=== PATIENT | female | born 1940 | race Caucasian/White ===

== ENCOUNTER 2017-12-22 08:09 | Emergency (ER) | payer MEDICARE ==
[~2017-12-22] VITALS: Ht 147.3 cm; Wt 56.2 kg
[~2017-12-22 08:09] MED LIST: ASCO500T11 PO; CEPH750C6 PO; HYDR-2549 PO
[2017-12-22 08:45] VITALS: BP 113/76
[2017-12-22 09:03] LABS: Basophils # (auto) 0 uL; Basophils % (auto) 0.8 % (0.0-2.0); Eosinophils # (auto) 0 uL; Eosinophils % (auto) 0.5 % (0.0-7.0); Hematocrit 44.7 % (36.0-46.0); Hemoglobin 15.6 g/dL (12.2-16.2); Lymphocytes % (auto) 36.6 % (10.0-50.0); Mean Corpuscular Hemoglobin 32.7 pg (28.0-32.0); Mean Corpuscular Hgb Conc. 34.9 g/dL (32.0-36.0); Mean Corpuscular Volume 93.7 fL (80.0-100.0); Monocytes # (auto) 0.4 uL; Monocytes % (auto) 7.7 % (0.0-12.0); Neutrophils % (auto) 54.4 % (37.0-80.0); Nucleated Red Blood Cells % 0.2 %; Platelet Count (auto) 227 10^3/uL (140-450); Red Blood Cells 4.77 10^6/uL (4.0-5.20); Red Cell Distribution Width 13.3 % (11.8-14.3); White Blood Cell 5.5 10^3/uL (4.4-10.8)
[2017-12-22 09:34] LABS: Alanine Aminotransferase 25 U/L (13-56); Albumin 3.5 g/dL (3.4-5.0); Alkaline Phosphatase 63 U/L (45-117); Anion Gap 8 (5-15); Aspartate Aminotransferase 27 U/L (15-37); BUN/Creatinine Ratio 19.4; Bilirubin, Total 0.4 mg/dL (0.2-1.0); Blood Urea Nitrogen 13 mg/dL (7-18); Calcium 7.9 mg/dL (8.5-10.1); Carbon Dioxide 21 mmol/L (21-32); Chloride 114 mmol/L (98-107); GFR African American 109 mL/min; GFR Non-African American 90 mL/min; Glucose 95 mg/dL (74-106); Potassium 3.8 mmol/L (3.5-5.1); Sodium 143 mmol/L (136-145)
[2017-12-22 09:54] LABS: Urine Bacteria FEW /hpf (None Seen); Urine Blood Negative /uL (Negative); Urine Specific Gravity 1.011 (1.001-1.035); Urine WBC 44 /hpf (0 - 5)
== END 2017-12-22 10:42 | disposition home or self-care (01) ==
LOC: ER 08:09
DX: N39.0 Urinary tract infection, site not specified (principal); E11.9 Type 2 diabetes mellitus without complications; E78.5 Hyperlipidemia, unspecified; Z90.49 Acquired absence of other specified parts of digestive tract; Z88.8 Allergy status to other drugs, medicaments and biological substances; Z79.899 Other long term (current) drug therapy; Z90.710 Acquired absence of both cervix and uterus
CPT/HCPCS: 36415; 71045; 80053; 81001; 83735; 84484; 85025; 93005

== ENCOUNTER 2024-11-05 15:07 | Inpatient (IN) | payer MEDICARE ==
[~2024-11-05] VITALS: Ht 149.9 cm; Wt 126.5 kg
--- NOTE | 2024-11-05 15:31 | ED.PDOC ---
HPI Comments HPI: Poor Historian. 84-year-old female presents to emergency department from urgent care further evaluation. Patient went to urgent care today because she thought she has some UTI. She did a home test and was positive. Patient at urgent care per urgent Care report was diaphoretic and pale and weak. Vital signs were otherwise unremarkable. EKGs read abnormal. They sent the patient here for further evaluation. Patient has been having lightheaded and dizziness for the intermittent for the last two weeks but got worse today. Past Medical History:UTI, hyperlipidemia, prediabetes Past Surgical History:Appendectomy, Cholecystectomy, Hysterectomy, Tonsillectomy Allergy:Clopidogrel, nitrofurantoin REVIEW OF SYSTEMS: CONSTITUTIONAL: Denies acute: fever, diaphoresis, chills, HEAD: Denies acute: headache, photophobia Eyes: Denies acute: Double vision, vision loss, eye pain, eye discharge. EARS: Denies acute: tinnitus, hearing loss, ear discharge, ear pain, THROAT: Denies acute: sore throat, swelling, difficulty swallowing , pain with swallowing, change in voice. NECK: Denies acute: neck pain, neck swelling, stiff neck. HEART: Denies acute : chest pain, palpitations, LUNGS: Denies acute: SOB, wheezing, cough, hemoptysis ABDOMEN: Denies acute: abdominal pain, Nausea, Vomiting, diarrhea, melena , hematemesis, hematochezia SKIN: Denies acute: rash, redness, lesions, itchiness. EXTREMITIES: Denies acute: calf pain, numbness, tingling, weakness, denies pain in extremity. Denies acute: Low back pain. Neuro: Denies acute: focal neurological deficit, motor or sensory focal neurological deficit, tremors, seizure like activity, confusion, change in mental status, loss of bowel or bladder function, cauda equina like symptoms. : Denies acute: dysuria, hematuria, flank pain, increase in urinary frequency. PSYCH: Denies acute: hallucination, suicidal ideation, homicidal ideation. FEMALE: Denies acute: abnormal vaginal bleeding, foul odor, unusual discharge. PHYSICAL EXAM: General: no acute distress, awake and alert. Head: normocephalic, atraumatic. Neck: supple, trachea is midline, no swelling. Throat: Normal phonation. Eyes:, no erythema, no purulent discharge, no proptosis, no icterus. Heart: regular rate, regular rhythm, no significant murmur appreciated. Lungs: no apparent respiratory distress, Able to speak in full sentences. No wheezing, no rhonchi, no crackles. No stridors Clear to auscultation bilaterally. Abdomen: non tender to palpation, non distended, soft, no guarding, no rebound, + bowel sounds. Neuro: Awake, Alert, oriented to name, self, situation, follows commands GCS=15. Speech is normal. Skin: no petechia, no purpura, no cyanosis, non-pale, not jaundice. Lower extremities: --no - Pitting edema no deformity, no focal swelling, no calf TTP. Makes eye contact. moves all four extremities. Face: no apparent facial droop. ED COURSE: Time Seen by MD: 15:12 Primary Care Provider: Unknown Reviewed Notes: Nurses Notes, Allergies Allergies: Coded Allergies: Clopidogrel (Verified Allergy, Unknown, 05/16/15) Nitrofurantoin (Verified Allergy, Unknown, 05/16/15) Home Meds Active Scripts Ascorbic Acid (VITAMIN C TABLET) 500 Mg Tb, 500 MG PO BID, #60 Prov:TRAY HUTCHISON MD 05/19/15 Reported Medications Hydrocodone-Acetaminophen (Hydrocodone/Apap) 1 Tab Tab, 1 TAB PO Q4HP PRN for PAIN, TAB 05/16/15 Cephalexin (CEPHALEXIN) 750 Mg Cap, 500 MG PO Q12HR, CAP 05/16/15 Information Source: Patient Past Medical History PAST MEDICAL HISTORY: DM, High Lipids, Liver Surgical History: Appendectomy, Cholecystectomy, Hysterectomy, Tonsillectomy 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 Was a procedure done?: No CP Differential Dx Differential Diagnosis: N/A Differential Diagnosis: Other (Includes but not limited to thyroid disease, encephalopathy, electrolyte abnormality, sepsis, infection, intracranial pathology, drug adverse effects, arrhythmia, kidney insufficiency, ACS, CVA, malignancy, anemia) X-Ray, Labs, Meds, VS Vital Signs Date Time Temp Pulse Resp B/P (MAP) Pulse Ox O2 Delivery O2 Flow Rate FiO2 11/05/24 21:20 Room Air* 0 21 11/05/24 21:20 98.4 88 16 143/84 (103) 98 98.4 11/05/24 20:04 97.8 77 16 128/67 (87) 98 97.8 11/05/24 15:30 81 11/05/24 15:15 98.2 74 18 163/67 (99) 100 Lab Test 11/05/24 19:26 11/05/24 17:28 11/05/24 16:00 11/05/24 15:41 Range/Units Troponin I High Sensitivity < 3 L < 3 L < 3 L </=34 ng/L White Blood Count 5.6 4.4-10.8 10^3/uL Red Blood Count 4.77 4.0-5.20 10^6/uL Hemoglobin 15.4 12.2-16.2 g/dL Hematocrit 44.7 36.0-46.0 % Mean Corpuscular Volume 93.7 80.0-100.0 fL Mean Corpuscular Hemoglobin 32.2 H 28.0-32.0 pg Mean Corpuscular Hemoglobin Concent 34.4 32.0-36.0 g/dL Red Cell Distribution Width 13.3 11.8-14.3 % Platelet Count 254 140-450 10^3/uL Mean Platelet Volume 6.9 6.9-10.8 fL Neutrophils (%) (Auto) 48.5 37.0-80.0 % Lymphocytes (%) (Auto) 41.0 10.0-50.0 % Monocytes (%) (Auto) 8.4 0.0-12.0 % Eosinophils (%) (Auto) 1.0 0.0-7.0 % Basophils (%) (Auto) 1.1 0.0-2.0 % Neutrophils # (Auto) 2.7 1.6-8.6 10 ^3/uL Lymphocytes # (Auto) 2.3 0.4-5.4 10 ^3/uL Monocytes # (Auto) 0.5 0-1.3 10 ^3/uL Eosinophils # (Auto) 0.1 0-0.8 10 ^3/uL Basophils # (Auto) 0.1 0-0.2 10 ^3/uL Nucleated Red Blood Cells 0.0 % Sodium Level 143 136-145 mmol/L Potassium Level 3.6 3.5-5.1 mmol/L Chloride Level 108 H 98-107 mmol/L Carbon Dioxide Level 24 20-31 mmol/L Anion Gap 11 5-15 Blood Urea Nitrogen 14 9-23 mg/dL Creatinine 0.82 0.550-1.02 mg/dL Glomerular Filtration Rate Calc 70 >90 mL/min BUN/Creatinine Ratio 17.1 10.0-20.0 Serum Glucose 102 74-106 mg/dL Lactic Acid Level 1.9 0.4-2.0 mmol/L Calcium Level 10.6 H 8.7-10.4 mg/dL Magnesium Level 2.3 1.6-2.6 mg/dL Total Bilirubin 0.6 0.2-1.0 mg/dL Aspartate Amino Transferase (AST) 19 13-40 U/L Alanine Aminotransferase (ALT) 16 7-40 U/L Alkaline Phosphatase 82 46-116 U/L B-Type Natriuretic Peptide 36.68 0-100 pg/mL Total Protein 8.1 5.7-8.2 g/dL Albumin 5.2 H 3.2-4.8 g/dL POC Glucose 101 70-106 mg/dl Test 11/05/24 15:26 Range/Units Urine Color Colorless Yellow Urine Clarity Clear Clear Urine pH 7.0 5.0-9.0 Urine Specific [place] 1.006 1.001-1.035 Urine Protein Negative Negative Urine Ketones Negative Negative Urine Blood Negative Negative /uL Urine Nitrite 1+ H Negative Urine Bilirubin Negative Negative Urine Urobilinogen Normal Negative mg/dL Urine Leukocyte Esterase Negative Negative /uL Urine RBC 3 0 - 4 /hpf Urine Microscopic WBC 4 0-5 /HPF Urine Squamous Epithelial Cells Few <5 /hpf Urine Bacteria Few H None Seen /hpf Urine Glucose Normal Normal mg/dL Current Medications Medications (Trade) Dose Ordered Sig/Rachel Route Start Time Stop Time Status Last Admin Sodium Chloride 1,000 ml @ 1,000 mls/hr Q1H ONCE IV 11/05/24 15:30 11/05/24 16:29 DC 11/05/24 22:[address] [address] Ph: [phone] DIAGNOSTIC IMAGING Diagnostic Imaging Report : [id number] Signed PATIENT: ADRYAN SNOWDEN ACCT: [id number] UNIT: [id number] : 1940 LOC: ER ROOM / BED: / AGE / SEX: 84 / F ADM STATUS: REG ER SERVICE 1512 ORDERING PHYSICIAN: RAMIRO MCGEE DO PROCEDURE(s): CXRP - CHEST PORTABLE REASON: weak/dizzy ORDER NUMBER(s): [id number], ACCESSION NUMBER(s): [id number] EXAM: XR Chest, 1 View CLINICAL INDICATION: weak/dizzy TECHNIQUE: Frontal view of the chest. COMPARISON: None FINDINGS: LUNGS AND PLEURAL SPACES: Unremarkable. No consolidation. No pneumothorax. HEART: Unremarkable. No cardiomegaly. MEDIASTINUM: Unremarkable. Normal mediastinal contour. BONES/JOINTS: Unremarkable. No acute fracture. OTHER FINDINGS: . None. IMPRESSION: No acute cardiopulmonary process. ATED BY: LIZY BARKSDALE MD DICTATED DATE/TIME: 11/05/241653 SIGNED BY: LIZY BARKSDALE MD SIGNED DATE/TIME: 11/05/241653 CC: [place] [id number] Ph: [phone] DIAGNOSTIC IMAGING Diagnostic Imaging Report : [id number] Signed PATIENT: ADRYAN SNOWDEN ACCT: [id number] UNIT: [id number] : 1940 LOC: ER ROOM / BED: / AGE / SEX: 84 / F ADM STATUS: REG ER SERVICE 45 ORDERING PHYSICIAN: RAMIRO MCGEE DO PROCEDURE(s): HWOCT - HEAD WITHOUT CONTRAST REASON: lightheaded ORDER NUMBER(s): [id number], ACCESSION NUMBER(s): [id number] EXAM: CT HEAD WITHOUT CONTRAST INDICATION: lightheaded TECHNIQUE: CT of the head without intravenous contrast. Radiation Dose Information: CT Dose: CTDI volume is 54.26 mGy. Dose-length product is 961.14 mGy*cm The dose indicators for CT are the volume Computed Tomography (CT) Dose Index (CTDIvol) and the Dose Length Product (DLP), and are measured in units of mGy and mGy-cm, respectively. These indicators are not patient dose, but values generated from the CT scanner acquisition factors. The report includes radiation exposure data for exposures received during this examination. COMPARISON: None FINDINGS: There is no evidence of acute intracranial hemorrhage, extra-axial collection, mass effect, midline shift, herniation or hydrocephalus. The ventricles, sulci and cisterns are age appropriate. The valencia-white differentiation is intact. Patchy periventricular and subcortical white matter hypoattenuation is nonspecific but may be related to small vessel ischemic disease. The visualized paranasal sinuses and mastoid air cells are clear. The surrounding soft tissues and osseous structures are unremarkable. IMPRESSION: 1. No acute intracranial hemorrhage 2. No CT findings of territorial ischemia. ATED BY: DILAN URIBE Jr., DO DICTATED DATE/TIME: 11/05/242106 SIGNED BY: DILAN URIBE Jr., SIGNED DATE/TIME: 11/05/242106 CC: Time of 1ST Reevaluation: 22:04 Reevaluation 1ST: Unchanged Patient Education/Counseling: Diagnosis, Treatment Family Education/Counseling: Other Comments Patient presented with the above HPI.--lightheadedness----workup was initiated. patient was found with the above mentioned diagnosis. the following medications were ordered: please refer to order lists of meds and tests obtained by myself Dr. Mcgee. Patient ED course and VS have been stabilized. Patient has been reassessed in the ED and remained in a stable condition. Pertinent incidental findings were discussed with the patient and/or family. Patient/family voices understanding and is agreeable with plan. Patient has been observed in the ED adequate length of time to insure improvement/stability. Escalation of care considered: Consideration of escalation to observation or admission Patient was sent from urgent care because she did not appear clinically stable to be discharged home. Patient continued to have persistent lightheadedness without any focal neurological deficits. Patient received Rocephin prior to ar rival to ED. Patient was ADMITTED to the medicine team for further evaluation and treatment of their presentation. All the reports of any imaging studies that were ordered by myself were reviewed by myself. Departure 1 Departure Time of Disposition: 21:00 Impression: Primary Impression: Lightheadedness Additional Impressions: Generalized weakness UTI (urinary tract infection) Disposition: ADMITTED INPATIENT Admit to: Tele Condition: Guarded Discharged With: Self Critical Care Note Critical Care Time?: No Heart Score Heart Score: Heart Score Response (Comments) Value History N/A 0 EKG N/A 0 Age N/A 0 Risk Factors N/A 0 Troponin N/A 0 Total 0 I personally scribed for RAMIRO MCGEE DO ([email or web address]) on 11/05/24 at 17:32. Electronically submitted by Teofilo Maria ([email or web address]). RAMIRO MCGEE DO Nov 05, 2024 15:31
--- NOTE | 2024-11-05 15:31 | ECG ---
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
[2024-11-05 16:19] LABS: Basophils # (auto) 0.1 10 ^3/uL (0-0.2); Basophils % (auto) 1.1 % (0.0-2.0); Eosinophils # (auto) 0.1 10 ^3/uL (0-0.8); Hematocrit 44.7 % (36.0-46.0); Hemoglobin 15.4 g/dL (12.2-16.2); Lymphocytes # (auto) 2.3 10 ^3/uL (0.4-5.4); Mean Corpuscular Hemoglobin 32.2 pg (28.0-32.0); Mean Corpuscular Hgb Conc. 34.4 g/dL (32.0-36.0); Mean Corpuscular Volume 93.7 fL (80.0-100.0); Monocytes # (auto) 0.5 10 ^3/uL (0-1.3); Monocytes % (auto) 8.4 % (0.0-12.0); Neutrophils # (auto) 2.7 10 ^3/uL (1.6-8.6); Neutrophils % (auto) 48.5 % (37.0-80.0); Platelet Count (auto) 254 10^3/uL (140-450); Red Blood Cells 4.77 10^6/uL (4.0-5.20); Red Cell Distribution Width 13.3 % (11.8-14.3); White Blood Cell 5.6 10^3/uL (4.4-10.8)
[2024-11-05 16:33] LABS: Alanine Aminotransferase 16 U/L (7-40); Alkaline Phosphatase 82 U/L (46-116); Anion Gap 11 (5-15); Aspartate Aminotransferase 19 U/L (13-40); BUN/Creatinine Ratio 17.1 (10.0-20.0); Bilirubin, Total 0.6 mg/dL (0.2-1.0); Blood Urea Nitrogen 14 mg/dL (9-23); Carbon Dioxide 24 mmol/L (20-31); Glucose 102 mg/dL (74-106); Magnesium 2.3 mg/dL (1.6-2.6); Potassium 3.6 mmol/L (3.5-5.1); Sodium 143 mmol/L (136-145); Total Protein 8.1 g/dL (5.7-8.2)
[2024-11-05 16:34] LABS: Albumin 5.2 g/dL (3.2-4.8); Calcium 10.6 mg/dL (8.7-10.4); Chloride 108 mmol/L (98-107)
--- NOTE | 2024-11-05 16:56 | DVH ---
EXAM: XR Chest, 1 View CLINICAL INDICATION: weak/dizzy TECHNIQUE: Frontal view of the chest. COMPARISON: None FINDINGS: LUNGS AND PLEURAL SPACES: Unremarkable. No consolidation. No pneumothorax. HEART: Unremarkable. No cardiomegaly. MEDIASTINUM: Unremarkable. Normal mediastinal contour. BONES/JOINTS: Unremarkable. No acute fracture. OTHER FINDINGS: . None. IMPRESSION: No acute cardiopulmonary process.
[2024-11-05 17:22] LABS: Urine Bacteria FEW /hpf (None Seen); Urine Blood Negative /uL (Negative); Urine Clarity Clear (Clear); Urine Color Colorless (Yellow); Urine Protein, UAD Negative (Negative); Urine Specific Gravity 1.006 (1.001-1.035); Urine Squamous Epithelial Cell FEW /hpf (<5); Urine Urobilinogen Normal (Negative); Urine WBC 4 /HPF (0-5)
--- NOTE | 2024-11-05 21:10 | DVH ---
EXAM: CT HEAD WITHOUT CONTRAST INDICATION: lightheaded TECHNIQUE: CT of the head without intravenous contrast. Radiation Dose Information: CT Dose: CTDI volume is 54.26 mGy. Dose-length product is 961.14 mGy*cm The dose indicators for CT are the volume Computed Tomography (CT) Dose Index (CTDIvol) and the Dose Length Product (DLP), and are measured in units of mGy and mGy-cm, respectively. These indicators are not patient dose, but values generated from the CT scanner acquisition factors. The report includes radiation exposure data for exposures received during this examination. COMPARISON: None FINDINGS: There is no evidence of acute intracranial hemorrhage, extra-axial collection, mass effect, midline s hift, herniation or hydrocephalus. The ventricles, sulci and cisterns are age appropriate. The valencia-white differentiation is intact. Patchy periventricular and subcortical white matter hypoattenuation is nonspecific but may be related to small vessel ischemic disease. The visualized paranasal sinuses and mastoid air cells are clear. The surrounding soft tissues and osseous structures are unremarkable. IMPRESSION: 1. No acute intracranial hemorrhage 2. No CT findings of territorial ischemia.
[2024-11-05] MEDS ORDERED: MORPHINE SULFATE INJ 2 MG/ml SYRG IV PRN (21:45)
[2024-11-05] MEDS ORDERED: NITROGLYCERIN 0.4 MG SL TAB SL PRN (21:45)
[2024-11-05] MEDS: SODIUM CHLORIDE 0.9% 1,000 ML IV ONE (22:00)
[2024-11-05] MEDS: SODIUM CHLOR 0.9% PF (SALINE LOCK) 10ML VIAL/SYR IV SCH (22:02)
--- NOTE | 2024-11-05 22:35 | DVHHPRES ---
History of Present Illness Resident Creating Document: FELISHA THOMAS RESIDENT History of Present Illness ADRYAN SNOWDEN 4 years old female with a PMH of prediabetes, HLD, liver cyst presented to the ED with the chief complaints of dizziness. Patient reported for last 2 weeks patient has been having dizziness, today she tested positive for UTI at home, went to urgent care, advised to visit ED. on my assessment patient denies fever, nausea, vomiting, abdominal pain, burning micturition, chest pain, palpitations and other acute associated symptoms PMH: HLD, prediabetes, liver cyst PSH: Appendectomy, cholecystectomy, hysterectomy, tonsillectomy Family history: Noncontributory Social history: Lives with . Denies smoking, alcohol and other drug abuse Allergies: Clopidogrel, nitrofurantoin Review of Systems Constitutional: No: Fever, Chills, Sweats, Weakness, Malaise, Other Eyes: No: Pain, Vision change, Conjunctivae inflammation, Eyelid inflammation, Other, Redness ENT: No: Ear pain, Ear discharge, Nose pain, Nose discharge, Nose congestion, Mouth pain, Mouth swelling, Throat pain, Throat swelling, Other Respiratory: No: Cough, Dry, Shortness of breath, SOB with excertion, Wheezing, Hemoptysis, Pleuritic Pain, Sputum, Wheezing, Other Cardiovascular: Lt Headedness Gastrointestinal: No: Nausea, Vomiting, Abdominal Pain, Diarrhea, Constipation, Melena, Hematochezia, Other Genitourinary: No Dysuria, No Frequency, No Incontinence, No Hematuria, No Retention, No Other Musculoskeletal: No: other, neck pain, shoulder pain, arm pain, back pain, hand pain, leg pain, foot pain Skin: No: Rash, Lesions, Jaundice, Bruising, Other Neurological: No: Weakness, Numbness, Incoordination, Change in speech, Confusion, Seizures, Other Allergies: Coded Allergies: Clopidogrel (Verified Allergy, Unknown, 05/16/15) Nitrofurantoin (Verified Allergy, Unknown, 05/16/15) Medications Current Medications Medications Dose Ordered Sig/Rachel Route Start Time Stop Time Status Last Admin Dose Admin Sodium Chloride 10 ml Q8HR IV 11/05/24 22:00 11/05/24 22:02 10 ML Sodium Chloride 1,000 ml @ 60 mls/hr [id number] IV 11/05/24 21:45 Enoxaparin Sodium 40 mg DAILY SC 11/06/24 10:00 Acetaminophen 650 mg Q6HP PRN PO 11/05/24 21:45 Nitroglycerin 0.4 mg Q5MINP PRN SL 11/05/24 21:45 Morphine Sulfate 2 mg Q30M PRN IV 11/05/24 21:45 Ceftriaxone Sodium 50 ml @ 100 mls/hr DAILY@09 IV 11/06/24 09:00 UNV Exam Vital Signs Vital Signs Date Time Temp Pulse Resp B/P (MAP) Pulse Ox O2 Delivery O2 Flow Rate FiO2 11/05/24 21:20 Room Air* 0 21 11/05/24 21:20 98.4 88 16 143/84 (103) 98 98.4 Exam Pt is lying on bed General Appearance: Alert, Oriented X3, Cooperative, Not in acute distress HEENT: Atraumatic, Mucous membranes moist/pink Respiratory: Clear to auscultation, Normal air movement, No added sounds Cardiovascular: Regular rate, Normal S1, Normal S2, No murmurs Abdominal: Active bowel sounds, Soft, no distention, no tenderness Extremities: No edema, Normal pulses, No tenderness/swelling Skin: No Significant rash, except past surgical scars Neuro: Normal speech, sensorimotor deficits none Psych/Mental Status: Mental status NL, Mood NL Nurse was there as yehudaerone during examination Labs/Xrays Labs Test 11/05/24 19:26 11/05/24 16:00 11/05/24 15:41 11/05/24 15:26 Range/Units Troponin I High Sensitivity < 3 L </=34 ng/L White Blood Count 5.6 4.4-10.8 10^3/uL Red Blood Count 4.77 4.0-5.20 10^6/uL Hemoglobin 15.4 12.2-16.2 g/dL Hematocrit 44.7 36.0-46.0 % Mean Corpuscular Volume 93.7 80.0-100.0 fL Mean Corpuscular Hemoglobin 32.2 H 28.0-32.0 pg Mean Corpuscular Hemoglobin Concent 34.4 32.0-36.0 g/dL Red Cell Distribution Width 13.3 11.8-14.3 % Platelet Count 254 140-450 10^3/uL Mean Platelet Volume 6.9 6.9-10.8 fL Neutrophils (%) (Auto) 48.5 37.0-80.0 % Lymphocytes (%) (Auto) 41.0 10.0-50.0 % Monocytes (%) (Auto) 8.4 0.0-12.0 % Eosinophils (%) (Auto) 1.0 0.0-7.0 % Basophils (%) (Auto) 1.1 0.0-2.0 % Neutrophils # (Auto) 2.7 1.6-8.6 10 ^3/uL Lymphocytes # (Auto) 2.3 0.4-5.4 10 ^3/uL Monocytes # (Auto) 0.5 0-1.3 10 ^3/uL Eosinophils # (Auto) 0.1 0-0.8 10 ^3/uL Basophils # (Auto) 0.1 0-0.2 10 ^3/uL Nucleated Red Blood Cells 0.0 % Sodium Level 143 136-145 mmol/L Potassium Level 3.6 3.5-5.1 mmol/L Chloride Level 108 H 98-107 mmol/L Carbon Dioxide Level 24 20-31 mmol/L Anion Gap 11 5-15 Blood Urea Nitrogen 14 9-23 mg/dL Creatinine 0.82 0.550-1.02 mg/dL Glomerular Filtration Rate Calc 70 >90 mL/min BUN/Creatinine Ratio 17.1 10.0-20.0 Serum Glucose 102 74-106 mg/dL Lactic Acid Level 1.9 0.4-2.0 mmol/L Calcium Level 10.6 H 8.7-10.4 mg/dL Magnesium Level 2.3 1.6-2.6 mg/dL Total Bilirubin 0.6 0.2-1.0 mg/dL Aspartate Amino Transferase (AST) 19 13-40 U/L Alanine Aminotransferase (ALT) 16 7-40 U/L Alkaline Phosphatase 82 46-116 U/L B-Type Natriuretic Peptide 36.68 0-100 pg/mL Total Protein 8.1 5.7-8.2 g/dL Albumin 5.2 H 3.2-4.8 g/dL POC Glucose 101 70-106 mg/dl Urine Color Colorless Yellow Urine Clarity Clear Clear Urine pH 7.0 5.0-9.0 Urine Specific [place] 1.006 1.001-1.035 Urine Protein Negative Negative Urine Ketones Negative Negative Urine Blood Negative Negative /uL Urine Nitrite 1+ H Negative Urine Bilirubin Negative Negative Urine Urobilinogen Normal Negative mg/dL Urine Leukocyte Esterase Negative Negative /uL Urine RBC 3 0 - 4 /hpf Urine Microscopic WBC 4 0-5 /HPF Urine Squamous Epithelial Cells Few <5 /hpf Urine Bacteria Few H None Seen /hpf Urine Glucose Normal Normal mg/dL Assessment/Plan Assessment/Plan # Dizziness # possible orthostatic hypotenion - orthostatic vitals - head CT showed no acute changes # ? UTI -currently giving Rocephin -ordered urine cultures PUD PPX: Not indicated VTE PPX: Lovenox Diet: Regular Goals of care discussed with the patient for more than 29 minutes: Full code status Case discussed with Dr. Hawkins, patient and nurse. Plan discussed with: Patient My Orders Orders - FELISHA THOMAS RESIDENT Procedure Category Date Status Time Admit ADMIT 11/05/24 Transmitted 21:32 Allergies HARRISON 11/05/24 In Process 21:32 Code Status CODE 11/05/24 Transmitted 21:32 Sodium Chloride Lock PHA 11/05/24 In Process (Saline Lock Ns) 22:00 Sodium Chloride 0.9% PHA 11/05/24 In Process 21:45 Enoxaparin Sodium PHA 11/06/24 In Process (Lovenox) 10:00 Complete Blood Count LAB 11/06/24 Verified 04:00 Comprehensive LAB 11/06/24 Verified Metabolic Panel 04:00 Cardiac DIET 11/06/24 Transmitted Diet-2gna,Lofat,Lochol Breakfast Echo 2d Mode Cardiac US 11/05/24 Logged DOP 21:32 Condition: Stable HARRISON 11/05/24 In Process 21:32 Acetaminophen Tablet PHA 11/05/24 In Process (Tylenol Tablet) 21:45 Nitroglycerin PHA 11/05/24 In Process Sublingual (Ntrostat 21:45 Morphine Sulfate PHA 11/05/24 In Process Injection 21:45 Oxygen By Nasal RT 11/05/24 Transmitted Cannula 21:32 Stat Ekg For Chest HARRISON 11/05/24 In Process Pain 21:32 Notify Of Changes HARRISON 11/05/24 In Process From Base 21:32 Orthostatic Vital ED NURSING 11/05/24 Transmitted Signs Ceftriaxone 1gm/50ml PHA 11/05/24 Logged D5w (Rocephin) 22:30 Ceftriaxone 1gm/50ml PHA 11/06/24 Logged D5w (Rocephin) 09:00 Rapid Influenza A&B LAB 11/05/24 Logged 22:28 PTPTT LAB 11/05/24 Logged 22:28 Magnesium LAB 11/05/24 Logged 22:28 Hemoglobin A1c LAB 11/05/24 Logged 22:28 Drug Screen LAB 11/05/24 Logged 22:28 Thyroid Stimulating LAB 11/05/24 Logged Hormone 22:28 Urinalysis LAB 11/05/24 Logged 22:28 B-Type Natriuretic LAB 11/05/24 Logged Peptide 22:28 Covid19 Antigen Nidia LAB 11/05/24 Logged Date of Service: Nov 05, 2024 Billing Provider: ANGELA HAWKINS MD Common Visit Codes: 35686-BJENSCQ INP/OBS CARE (HIGH) Secondary Visit Codes: 10782-RRLGQUYC CARE PLAN 30 MINUTES CASI THOMASShayneNYLA RESIDENT Nov 05, 2024 22:35 ANGELA HAWKINS MD Nov 08, 2024 10:10
[2024-11-05] MEDS: SODIUM CHLORIDE 0.9% 1,000 ML IV SCH (23:06)
[2024-11-05] MEDS: cefTRIAXone 1GM/50ML D5W 50 ML IV ONE (23:06)
[2024-11-05 23:08] LABS: INR 1.01 (0.9-1.15); Partial Thromboplastin Time 26.6 SEC (24.5-34.5); Prothrombin Time 10.7 sec (9.3-11.8)
[2024-11-05 23:15] LABS: COVID19 ANTIGEN SOFIA FIA NEGATIVE (NEGATIVE); Rapid Influenza A Negative (Negative); Rapid Influenza B Negative (Negative)
[2024-11-05 23:27] LABS: Amphetamine Screen, Urine Neg (NEGATIVE); Barbiturate Scree,Urine Neg (NEGATIVE); Benzodiazephine Screen, Urine Neg (NEGATIVE); Cannabinoid Screen, Urine Neg (NEGATIVE); Cocaine Screen, Urine Neg (NEGATIVE); Opiate Scree,Urine Neg (NEGATIVE); Phencyclidine Screen, Urine Neg (NEGATIVE)
[2024-11-06] VITALS (9 sets, daily range): BP systolic 114–144; BP diastolic 54–82; PULSE 76–93; RESP 16–88; TEMP 97.5–99.2; O2SAT 96–98
[2024-11-06] MEDS ORDERED: LORA-622 PO (03:13)
[2024-11-06 07:31] LABS: Basophils # (auto) 0 10 ^3/uL (0-0.2); Basophils % (auto) 0.7 % (0.0-2.0); Eosinophils # (auto) 0.1 10 ^3/uL (0-0.8); Eosinophils % (auto) 2.1 % (0.0-7.0); Hematocrit 41.2 % (36.0-46.0); Hemoglobin 13.6 g/dL (12.2-16.2); Lymphocytes # (auto) 1.8 10 ^3/uL (0.4-5.4); Lymphocytes % (auto) 33.8 % (10.0-50.0); Mean Corpuscular Hemoglobin 31.3 pg (28.0-32.0); Mean Corpuscular Hgb Conc. 33.1 g/dL (32.0-36.0); Mean Corpuscular Volume 94.7 fL (80.0-100.0); Monocytes # (auto) 0.6 10 ^3/uL (0-1.3); Monocytes % (auto) 10.6 % (0.0-12.0); Neutrophils # (auto) 2.8 10 ^3/uL (1.6-8.6); Neutrophils % (auto) 52.8 % (37.0-80.0); Nucleated Red Blood Cells % 0.3 %; Platelet Count (auto) 226 10^3/uL (140-450); Red Blood Cells 4.35 10^6/uL (4.0-5.20); Red Cell Distribution Width 13.7 % (11.8-14.3); White Blood Cell 5.3 10^3/uL (4.4-10.8)
[2024-11-06 07:40] LABS: Alanine Aminotransferase 13 U/L (7-40); Albumin 4.1 g/dL (3.2-4.8); Alkaline Phosphatase 57 U/L (46-116); Anion Gap 11 (5-15); Aspartate Aminotransferase 15 U/L (13-40); BUN/Creatinine Ratio 18.9 (10.0-20.0); Bilirubin, Total 0.5 mg/dL (0.2-1.0); Blood Urea Nitrogen 14 mg/dL (9-23); Calcium 9.4 mg/dL (8.7-10.4); Carbon Dioxide 23 mmol/L (20-31); Glucose 96 mg/dL (74-106); Potassium 3.8 mmol/L (3.5-5.1); Total Protein 6.3 g/dL (5.7-8.2)
[2024-11-06 07:46] LABS: Chloride 112 mmol/L (98-107); Sodium 146 mmol/L (136-145)
[2024-11-06] MEDS: cefTRIAXone 1GM/50ML D5W 50 ML IV SCH (09:05)
[2024-11-06] MEDS: ENOXAPARIN SOD 40 MG/0.4 ML SYRINGE SC SCH (09:05)
--- NOTE | 2024-11-06 12:01 | DVHSR ---
APPROVED REPORT EXAM: Two-dimensional and M-mode echocardiogram with Doppler and color Doppler. Blood Pressure: 121/54 mmHg INDICATION dizziness rule out heart disease RISK FACTORS Height: 4'11, Weight: 120 DIMENSIONS LVDd3.6 (3.8-5.7cm)LA (2D)3.7 (1.9-4.0cm)Aortic Root3.3 (2.0-3.7cm) LVDs2.4 (2.5-4.0cm)LA (MM) (1.9-4.0cm)Aortic Cusp Exc1.2 (1.5-2.0cm) EF (%) 55.0 (55-70%)Rt. Atrium4.1 (1.9-4.0cm)Asc. Aorta3.1 cm IVSd0.7 (0.7-1.1cm)RV (D)3.7 (1.8-2.4cm) PWd0.7 (0.7-1.1cm) Mitral Valve MitralMitral Stenosis E wave0.68m/sMV Mean GR.mmHg A wave1.05m/sMV Peak GR.51mmHg E/A ratio0.62D MVAcm2 DECEL [id number] 1/2 Timems Aortic Valve Aortic ValveAortic Stenosis V10.90m/[place] Mean GR.4mmHg V21.32m/[place] Peak GR.7mmHg LVOT Diameter2.1 (1.8-2.4cm)Doppler AVA2.36cm2 Pulmonic Valve V20.75m/s Tricuspid Valve TR Velocity2.21m/s [id number] Conclusion lvef 60% by visual estimate normal rv fucntion mild enlarged normal atria no severe valve abnormalities noted
--- NOTE | 2024-11-06 14:08 | DVHPN2 ---
Reviewed: Care Plan, H&P, Labs, Medications, Previous Orders, Radiology Changes from previous H/P or p: No Changes General: Per HPI Eyes: No Pain, No Vision change, No Conjunctivae inflammation, No Eyelid inflammation, No Other, No Redness ENT: No Ear pain, No Ear discharge, No Nose pain, No Nose discharge, No Nose congestion, No Mouth pain, No Mouth swelling, No Throat pain, No Throat swelling, No Other Cardiovascular: Lt Headedness Respiratory: No Cough, No Dry, No Shortness of breath, No SOB with excertion, No Wheezing, No Hemoptysis, No Pleuritic Pain, No Sputum, No Other Gastrointestinal: No Nausea, No Vomiting, No Abdominal Pain, No Diarrhea, No Constipation, No Melena, No Hematochezia, No Other Genitourinary: No Dysuria, No Frequency, No Incontinence, No Hematuria, No Retention, No Other Musculoskeletal: No other, No neck pain, No shoulder pain, No arm pain, No back pain, No hand pain, No leg pain, No foot pain Skin: No Rash, No Lesions, No Jaundice, No Bruising, No Other Objective Vitals Vital Signs Date Time Temp Pulse Resp B/P (MAP) Pulse Ox O2 Delivery O2 Flow Rate FiO2 11/06/24 13:00 99.2 93 20 134/69 (90) 96 99.2 11/06/24 08:00 Room Air* 0 21 Intake/Output Intake and Output 11/06/24 07:00 Intake Total 1590 ml Balance 1590 ml Intake Oral 120 ml IV Total 1470 ml # Voids 2 # Bowel Movements 1 General Appearance: Alert, Oriented X3, Cooperative HEENT: Atraumatic Cardiovascular: Regular rate, Normal S1, Normal S2 Abdomen: Normal bowel sounds, Soft Medications Current Medications Medications Dose Ordered Sig/Rachel Route Start Time Stop Time Status Last Admin Dose Admin Sodium Chloride 10 ml Q8HR IV 11/05/24 22:00 11/06/24 13:43 10 ML Sodium Chloride 1,000 ml @ 60 mls/hr [id number] IV 11/05/24 21:45 11/06/24 13:43 60 MLS/HR Enoxaparin Sodium 40 mg DAILY SC 11/06/24 10:00 11/06/24 09:05 40 MG Acetaminophen 650 mg Q6HP PRN PO 11/05/24 21:45 Nitroglycerin 0.4 mg Q5MINP PRN SL 11/05/24 21:45 Morphine Sulfate 2 mg Q30M PRN IV 11/05/24 21:45 Ceftriaxone Sodium 50 ml @ 100 mls/hr DAILY@09 IV 11/06/24 09:00 11/06/24 09:05 100 MLS/HR Laboratory Results Laboratory Tests 11/06/24 06:22 11/06/24 06:55 Chemistry Test 11/05/24 16:00 11/05/24 22:40 11/06/24 06:22 Albumin 5.2 g/dL (3.2-4.8) H 4.1 g/dL (3.2-4.8) Calcium Level 10.6 mg/dL (8.7-10.4) H 9.4 mg/dL (8.7-10.4) Magnesium Level 2.3 mg/dL (1.6-2.6) 2.0 mg/dL (1.6-2.6) Total Protein 8.1 g/dL (5.7-8.2) 6.3 g/dL (5.7-8.2) Coagulation Test 11/05/24 22:40 Prothrombin Time 10.7 sec (9.3-11.8) Prothrombin Time INR 1.01 (0.9-1.15) Activated Partial Thromboplast Time 26.6 SEC (24.5-34.5) Cardiac Markers Test 11/05/24 16:00 B-Type Natriuretic Peptide 36.68 pg/mL (0-100) LFT Test 11/05/24 16:00 11/06/24 06:22 Alanine Aminotransferase (ALT) 16 U/L (7-40) 13 U/L (7-40) Alkaline Phosphatase 82 U/L (46-116) 57 U/L (46-116) Aspartate Amino Transferase (AST) 19 U/L (13-40) 15 U/L (13-40) Total Bilirubin 0.6 mg/dL (0.2-1.0) 0.5 mg/dL (0.2-1.0) HgA1c, TSH Test 11/05/24 22:40 Hemoglobin A1c 5.4 % A1C (<5.7) Thyroid Stimulating Hormone (TSH) 3.78 uIU/mL (0.55-4.78) Urinalysis Test 11/05/24 15:26 Urine Color Colorless (Yellow) Urine Clarity Clear (Clear) Urine pH 7.0 (5.0-9.0) Urine Specific [place] 1.006 (1.001-1.035) Urine Protein Negative (Negative) Urine Ketones Negative (Negative) Urine Blood Negative /uL (Negative) Urine Nitrite 1+ (Negative) H Urine Bilirubin Negative (Negative) Urine Urobilinogen Normal mg/dL (Negative) Urine Leukocyte Esterase Negative /uL (Negative) Urine RBC 3 /hpf (0 - 4) Urine Microscopic WBC 4 /HPF (0-5) Urine Squamous Epithelial Cells Few /hpf (<5) Urine Bacteria Few /hpf (None Seen) H Urine Glucose Normal mg/dL (Normal) Microbiology Microbiology Date/Time Source Procedure Growth Status 11/05/24 15:26 Voided Urine Urine Culture - Preliminary Resulted Labs and/or images reviewed: Labs reviewed by me, Image(s) reviewed by me Assessment/Plan Assessment/Plan An 84 years old female with a PMH of prediabetes, HLD, liver cyst presented to the ED with the chief complaints of dizziness. Patient reported for last 2 weeks patient has been having dizziness, today she tested positive for UTI at home, went to urgent care, advised to visit ED. on my assessment patient denies fever, nausea, vomiting, abdominal pain, burning micturition, chest pain, palpitations and other acute associated symptoms PMH: HLD, prediabetes, liver cyst PSH: Appendectomy, cholecystectomy, hysterectomy, tonsillectomy Family history: Noncontributory Social history: Lives with . Denies smoking, alcohol and other drug abuse Allergies: Clopidogrel, nitrofurantoin # Dizziness # possible orthostatic hypotenion - orthostatic vitals - head CT showed no acute changes # ? UTI -currently giving Rocephin -ordered urine cultures hypernatremia Plan discussed with: Patient Date of Service: Nov 06, 2024 Billing Provider: KELSIE DUARTE DO Common Visit Codes: [id number] INP/OBS CARE(HIGH) KELSIE DUARTE DO Nov 06, 2024 14:08
[2024-11-06] MEDS: ACETAMINOPHEN 325 MG TAB PO PRN (16:05)
[2024-11-07 01:00] VITALS: BP 103/61; PULSE 74; RESP 18; TEMP 97.5; O2SAT 96
[2024-11-07 05:00] VITALS: BP_SYST 111; BP_SYST 97; BP_DIAS 52; BP_DIAS 54; PULSE 71; PULSE 87; RESP 18; RESP 19; TEMP 97.7; TEMP 97.9; O2SAT 95; O2SAT 99
[2024-11-07 09:00] VITALS: BP 106/58; PULSE 72; RESP 20; TEMP 97.2; O2SAT 99
[2024-11-07] MEDS ORDERED: LEVO500T91 PO (12:36)
--- NOTE | 2024-11-07 12:40 | DVHDS2 ---
Discharge Summary Date of Admission Nov 05, 2024 at 21:32 Date of Discharge: Nov 07, 2024 Labs/Diagnostic Data: Laboratory Results Test 11/06/24 06:55 11/06/24 06:22 11/05/24 22:40 11/05/24 19:26 White Blood Count 5.3 10^3/uL (4.4-10.8) Red Blood Count 4.35 10^6/uL (4.0-5.20) Hemoglobin 13.6 g/dL (12.2-16.2) Hematocrit 41.2 % (36.0-46.0) Mean Corpuscular Volume 94.7 fL (80.0-100.0) Mean Corpuscular Hemoglobin 31.3 pg (28.0-32.0) Mean Corpuscular Hemoglobin Concent 33.1 g/dL (32.0-36.0) Red Cell Distribution Width 13.7 % (11.8-14.3) Platelet Count 226 10^3/uL (140-450) Mean Platelet Volume 7.0 fL (6.9-10.8) Neutrophils (%) (Auto) 52.8 % (37.0-80.0) Lymphocytes (%) (Auto) 33.8 % (10.0-50.0) Monocytes (%) (Auto) 10.6 % (0.0-12.0) Eosinophils (%) (Auto) 2.1 % (0.0-7.0) Basophils (%) (Auto) 0.7 % (0.0-2.0) Neutrophils # (Auto) 2.8 10 ^3/uL (1.6-8.6) Lymphocytes # (Auto) 1.8 10 ^3/uL (0.4-5.4) Monocytes # (Auto) 0.6 10 ^3/uL (0-1.3) Eosinophils # (Auto) 0.1 10 ^3/uL (0-0.8) Basophils # (Auto) 0 10 ^3/uL (0-0.2) Nucleated Red Blood Cells 0.3 % Sodium Level 146 mmol/L (136-145) Potassium Level 3.8 mmol/L (3.5-5.1) Chloride Level 112 mmol/L (98-107) Carbon Dioxide Level 23 mmol/L (20-31) Anion Gap 11 (5-15) Blood Urea Nitrogen 14 mg/dL (9-23) Creatinine 0.74 mg/dL (0.550-1.02) Glomerular Filtration Rate Calc 79 mL/min (>90) BUN/Creatinine Ratio 18.9 (10.0-20.0) Serum Glucose 96 mg/dL (74-106) Calcium Level 9.4 mg/dL (8.7-10.4) Total Bilirubin 0.5 mg/dL (0.2-1.0) Aspartate Amino Transferase (AST) 15 U/L (13-40) Alanine Aminotransferase (ALT) 13 U/L (7-40) Alkaline Phosphatase 57 U/L (46-116) Total Protein 6.3 g/dL (5.7-8.2) Albumin 4.1 g/dL (3.2-4.8) Prothrombin Time 10.7 sec (9.3-11.8) Prothrombin Time INR 1.01 (0.9-1.15) Activated Partial Thromboplast Time 26.6 SEC (24.5-34.5) Hemoglobin A1c 5.4 % A1C (<5.7) Magnesium Level 2.0 mg/dL (1.6-2.6) Thyroid Stimulating Hormone (TSH) 3.78 uIU/mL (0.55-4.78) Influenza Type A Antigen Negative (Negative) Influenza Type B Antigen Negative (Negative) SARS-CoV-2 Antigen (Rapid) Negative (NEGATIVE) Troponin I High Sensitivity < 3 ng/L (</=34) Test 11/05/24 16:00 11/05/24 15:41 11/05/24 15:26 Lactic Acid Level 1.9 mmol/L (0.4-2.0) B-Type Natriuretic Peptide 36.68 pg/mL (0-100) POC Glucose 101 mg/dl (70-106) Urine Color Colorless (Yellow) Urine Clarity Clear (Clear) Urine pH 7.0 (5.0-9.0) Urine Specific [place] 1.006 (1.001-1.035) Urine Protein Negative (Negative) Urine Ketones Negative (Negative) Urine Blood Negative /uL (Negative) Urine Nitrite 1+ (Negative) Urine Bilirubin Negative (Negative) Urine Urobilinogen Normal mg/dL (Negative) Urine Leukocyte Esterase Negative /uL (Negative) Urine RBC 3 /hpf (0 - 4) Urine Microscopic WBC 4 /HPF (0-5) Urine Squamous Epithelial Cells Few /hpf (<5) Urine Bacteria Few /hpf (None Seen) Urine Glucose Normal mg/dL (Normal) Urine Opiates Screen Neg (NEGATIVE) Urine Fentanyl Screen Neg (NEGATIVE) Urine Barbiturates Screen Neg (NEGATIVE) Urine Phencyclidine Screen Neg (NEGATIVE) Urine Amphetamines Screen Neg (NEGATIVE) Urine Benzodiazepines Screen Neg (NEGATIVE) Urine Cocaine Screen Neg (NEGATIVE) Urine Cannabinoids Screen Neg (NEGATIVE) Other Laboratory Tests 11/06/24 06:55 11/06/24 06:22 Brief Hx & Hospital Course: ADRYAN SNOWDEN 4 years old female with a PMH of prediabetes, HLD, liver cyst presented to the ED with the chief complaints of dizziness. Patient reported for last 2 weeks patient has been having dizziness, today she tested positive for UTI at home, went to urgent care, advised to visit ED. on my assessment patient denies fever, nausea, vomiting, abdominal pain, burning micturition, chest pain, palpitations and other acute associated symptoms PMH: HLD, prediabetes, liver cyst PSH: Appendectomy, cholecystectomy, hysterectomy, tonsillectomy Family history: Noncontributory Social history: Lives with . Denies smoking, alcohol and other drug abuse Allergies: Clopidogrel, nitrofurantoin # Dizziness # possible orthostatic hypotenion - orthostatic vitals - head CT showed no acute changes # ? UTI -currently giving Rocephin -ordered urine cultures hypernatremia urine culture indicates sensitivity to all antibiotics send home with levofloxacin Condition at Discharge: Fair Final Diagnosis/Problems List see above Discharge Disposition: Home Discharge Instruct/Medications Diet: Regular Activity: No Restrictions, As Tolerated Discharge Statement: "Patient was advised to return to the ER or call 911 if any headaches, dizziness, shortness of breath, chest pain, abdominal pain, bleeding, fevers, or worsening of medical condition. Patient was counseled about treatment plan, medications, possible side effects, patientverbalized understanding. All questions were answered to the best of my ability. This discharge took greater then 30 minutes in planning, reviewing documentation, counseling the patient, and discussing with other team members." ASSESSMENT ASSESSMENT Assessment Date of Service: Nov 07, 2024 Billing Provider: KELSIE DUARTE DO Common Visit Codes: [id number] DISCH DAY >30min KELSIE DUARTE DO Nov 07, 2024 12:40
[2024-11-07 13:00] VITALS: BP 112/66; PULSE 82; RESP 18; TEMP 97.2; O2SAT 99
[2024-11-07 14:07] VITALS: BP 112/66; PULSE 82; RESP 18; TEMP 97.2; O2SAT 99
== END 2024-11-07 14:25 | disposition home or self-care (01) | DRG 312 ==
LOC: ER 15:07 → OVERFLOW 21:32 → WEST WING 21:34
PROVIDERS: ADMIT Internal Medicine; ATTEND Internal Medicine
DX: I95.1 Orthostatic hypotension (principal); E87.0 Hyperosmolality and hypernatremia; N39.0 Urinary tract infection, site not specified; E78.5 Hyperlipidemia, unspecified; Z20.822 Contact with and (suspected) exposure to COVID-19; E11.9 Type 2 diabetes mellitus without complications; K76.89 Other specified diseases of liver; Z90.49 Acquired absence of other specified parts of digestive tract; Z90.710 Acquired absence of both cervix and uterus; Z88.8 Allergy status to other drugs, medicaments and biological substances; Z79.899 Other long term (current) drug therapy; Z79.2 Long term (current) use of antibiotics; Z79.891 Long term (current) use of opiate analgesic
CPT/HCPCS: 36415; 70450; 71045; 80053; 80307; 81001; 82962; 83036; 83605; 83735; 83880; 84443; 84484; 85025; 85610; 85730; 87086; 87088; 87186; 87426; 87804; 93005; 93306; G0378